=== PATIENT | male | born 1995 | race Caucasian/White ===

== ENCOUNTER 2017-06-01 16:58 | Inpatient (IN) | payer OTHER ==
[~2017-06-01] VITALS: Ht 190.5 cm; Wt 63.8 kg
[~2017-06-01 16:58] MED LIST: DEBROX15 ML BOTH EARS; PEN-VEE K,VEET500 MG PO; SERTRALINE HCL50 MG PO
[2017-06-01 17:49] LABS: HEMATOCRIT 42.8 % (38.0-50.0); HEMOGLOBIN 14.1 G/DL (12.5-16.6); MCH 26.5 PG (29.0-34.0); MCHC 32.9 G/DL (30.0-36.0); MCV 80.5 FL (86-99); PLATELET COUNT 347 K/uL (156-360); RBC DIS.WIDTH-CV 12.9 % (11.8-14.6); RBC DIS.WIDTH-SD 37.2 % (39-53); RED BLOOD COUNT 5.32 M/uL (4.00-5.50); WHITE BLOOD COUNT 9.6 K/uL (4.1-10.2)
[2017-06-01 17:57] LABS: ALBUMIN 4.8 g/dL (3.2-4.8)
[2017-06-01 17:58] LABS: CHLORIDE 103 mEq/L (99-109); POTASSIUM 4.2 mEq/L (3.7-5.4); SODIUM 140 mEq/L (136-147)
[2017-06-01 18:00] LABS: GLUCOSE 125 mg/dL (70-99); TOTAL PROTEIN 9.1 g/dL (6.4-8.3)
[2017-06-01 18:02] LABS: TOTAL BILIRUBIN 0.3 mg/dL (0.0-1.0)
[2017-06-01 18:04] LABS: ALKALINE PHOSPHATASE 62 IU/L (3-129); CREATININE 0.9 mg/dL (0.6-1.3); GFR ESTIMATE (CALCULATED) > 59 mL/min/ (58.99-99999)
[2017-06-01 18:05] LABS: AST (GOT) 34 IU/L (2-34)
[2017-06-01 18:06] LABS: UREA NITROGEN (BUN) 11 mg/dL (9-23)
[2017-06-01 18:07] LABS: ACETAMINOPHEN (TYLENOL) < 10 mcg/mL (10-30); ALT (GPT) 25 IU/L (3-49); SALICYLATE < 5.0 MG/DL (15-30)
[2017-06-01 18:35] LABS: AMPHETAMINE NEGATIVE (500 ng/mL); BARBITURATES NEGATIVE (200 ng/mL); BENZODIAZEPINES NEGATIVE (150 ng/mL); BUPRENORPHINE NEGATIVE (10 ng/mL); COCAINE NEGATIVE (150 ng/mL); METHADONE NEGATIVE (200 ng/mL); METHAMPHETAMINE NEGATIVE (500 ng/mL); OPIATES (MORPHINE) NEGATIVE (100 ng/mL); OXYCODONE NEGATIVE (100 ng/mL); PHENCYCLIDINE NEGATIVE (25 ng/mL); PROPOXYPHENE NEGATIVE (300 ng/mL); THC CANNABINOIDS NEGATIVE (50 ng/mL); TRICYCLIC ANTIDEPRESSANTS NEGATIVE (300 ng/mL)
[2017-06-01] MEDS ORDERED: XANAX1 MG PO ×2 (20:40)
[2017-06-01] MEDS ORDERED: EFFEXOR50 MG PO (20:41)
[2017-06-01 22:19] VITALS: BP 112/71
[2017-06-02 07:50] VITALS: BP 113/58
[2017-06-02 15:22] VITALS: BP 103/56
[2017-06-03 07:44] VITALS: BP 111/56
[2017-06-03] MEDS ORDERED: FLUOXETINE HCL20 MG PO (09:37)
[2017-06-03] MEDS ORDERED: HYDROXYZINE PAM50 MG PO (09:37)
== END 2017-06-03 14:40 | disposition home or self-care (01) | DRG 885 ==
LOC: EME 16:58 → EDOF 20:04 → 1WEST 20:04 → ENRESERV 21:21 → 1WEST 21:41
PROVIDERS: Physician Assistant
DX: F33.2 Major depressive disorder, recurrent severe without psychotic features (principal); R45.851 Suicidal ideations; F60.3 Borderline personality disorder; F42.9 Obsessive-compulsive disorder, unspecified; F11.20 Opioid dependence, uncomplicated; F17.200 Nicotine dependence, unspecified, uncomplicated; T22.211A Burn of second degree of right forearm, initial encounter; X76.XXXA Intentional self-harm by smoke, fire and flames, initial encounter; Z91.14 Patient's other noncompliance with medication regimen; Z62.819 Personal history of unspecified abuse in childhood
CPT/HCPCS: 80053; 85027; 90839; 97150 GO; 97165 GO; 99281; 99285; G0480; Q0177

== ENCOUNTER 2017-06-04 15:09 | Emergency (ER) | payer OTHER ==
[~2017-06-04] VITALS: Ht 190.5 cm; Wt 66.3 kg
[~2017-06-04 15:09] MED LIST changes: +EFFEXOR50 MG PO; +FLUOXETINE HCL20 MG PO; +HYDROXYZINE PAM50 MG PO; +XANAX1 MG PO
[2017-06-04 15:53] LABS: HEMATOCRIT 38.1 % (38.0-50.0); HEMOGLOBIN 12.6 G/DL (12.5-16.6); MCH 26.6 PG (29.0-34.0); MCHC 33.1 G/DL (30.0-36.0); MCV 80.4 FL (86-99); PLATELET COUNT 264 K/uL (156-360); RBC DIS.WIDTH-CV 12.8 % (11.8-14.6); RBC DIS.WIDTH-SD 36.8 % (39-53); RED BLOOD COUNT 4.74 M/uL (4.00-5.50); WHITE BLOOD COUNT 9.1 K/uL (4.1-10.2)
[2017-06-04 16:01] LABS: ALBUMIN 4.1 g/dL (3.2-4.8)
[2017-06-04 16:02] LABS: CHLORIDE 105 mEq/L (99-109); POTASSIUM 4.3 mEq/L (3.7-5.4); SODIUM 136 mEq/L (136-147)
[2017-06-04 16:04] LABS: GLUCOSE 100 mg/dL (70-99)
[2017-06-04 16:07] LABS: ALKALINE PHOSPHATASE 53 IU/L (3-129); SERUM ETHYL ALCOHOL < 10 mg/dL; TOTAL BILIRUBIN 0.5 mg/dL (0.0-1.0); TOTAL PROTEIN 7.4 g/dL (6.4-8.3)
[2017-06-04 16:08] LABS: CREATININE 0.9 mg/dL (0.6-1.3); GFR ESTIMATE (CALCULATED) > 59 mL/min/ (58.99-99999)
[2017-06-04 16:09] LABS: UREA NITROGEN (BUN) 14 mg/dL (9-23)
[2017-06-04 16:11] LABS: ALT (GPT) 18 IU/L (3-49)
[2017-06-04 16:12] LABS: AST (GOT) 13 IU/L (2-34)
[2017-06-04 18:12] LABS: AMPHETAMINE NEGATIVE (500 ng/mL); BARBITURATES NEGATIVE (200 ng/mL); BENZODIAZEPINES NEGATIVE (150 ng/mL); BUPRENORPHINE NEGATIVE (10 ng/mL); COCAINE NEGATIVE (150 ng/mL); METHADONE NEGATIVE (200 ng/mL); METHAMPHETAMINE NEGATIVE (500 ng/mL); OPIATES (MORPHINE) NEGATIVE (100 ng/mL); OXYCODONE PRESUMPTIVE POSITIVE (100 ng/mL); PHENCYCLIDINE NEGATIVE (25 ng/mL); PROPOXYPHENE NEGATIVE (300 ng/mL); THC CANNABINOIDS NEGATIVE (50 ng/mL); TRICYCLIC ANTIDEPRESSANTS NEGATIVE (300 ng/mL)
[2017-06-04 20:02] VITALS: BP 109/68
== END 2017-06-04 20:03 | disposition home or self-care (01) ==
LOC: EME 15:09
PROVIDERS: Emergency Medicine
DX: F33.1 Major depressive disorder, recurrent, moderate (principal); T22.011D Burn of unspecified degree of right forearm, subsequent encounter; X76.XXXD Intentional self-harm by smoke, fire and flames, subsequent encounter; F60.3 Borderline personality disorder; F17.200 Nicotine dependence, unspecified, uncomplicated
CPT/HCPCS: 80053; 85027; 90837; 99281; 99284; G0480